=== PATIENT | male | born 1980 | race Caucasian/White ===

== ENCOUNTER 2020-12-23 10:18 | Emergency (ER) | payer OTHER ==
[~2020-12-23] VITALS: Ht 185.4 cm; Wt 77.6 kg
[2020-12-23] MEDS ORDERED: LIDOCAINE 1%/EPI 1:100,000 10 ML VIAL. ONE (10:27)
[2020-12-23] MEDS ORDERED: BACITRACIN ZINC TOPICAL OINT PACKET. TP ONE (10:28)
[2020-12-23] MEDS ORDERED: KETOROLAC 30 MG/ML VIAL. ONE (10:28)
[2020-12-23] MEDS ORDERED: NEOMY/BACITR/POLYMYXIN OINT PACKET. TP ONE (10:30)
[2020-12-23] MEDS ORDERED: CEPHALEXIN 250 MG CAPSULE PO ONE (10:30)
[2020-12-23] MEDS ORDERED: KETOROLAC 30 MG/ML VIAL. IM ONE (10:30)
[2020-12-23] MEDS ORDERED: DIPH,PERTUSS(ACELL),TET VAC/PF 0.5 ML SYRINGE. VAX IM ONE (10:30)
[2020-12-23] MEDS ORDERED: LIDOCAINE 1%/EPI 1:100,000 20 ML VIAL. IJ ONE (10:30)
[2020-12-23] MEDS ORDERED: LIDOCAINE 1%/EPI 1:100,000 10 ML VIAL. INJ ONE (10:30)
--- NOTE | 2020-12-23 10:49 | RAD ---
Right thumb 3 views. HISTORY: Thumb injury with nail 3 views were taken of the right thumb. There is a nail through the soft tissues at the tip of the felisa mb. The nail is distal to the phalanx, there is no fracture noted. IMPRESSION: 1. Nail through the soft tissues the distal thumb. 2. No acute fracture noted. Electronically signed by: Rick Abrams MD (12/23/2020 10:46 AM) [id number]
[2020-12-23] MEDS ORDERED: CEPH500C PO (11:19)
[2020-12-23] MEDS ORDERED: HYDR-2155 PO (11:19)
--- NOTE | 2020-12-23 11:20 | PHYS DOC ---
Past History Past Medical History: No Pertinent History Past Surgical History: No Surgical History Smoking: Cigarettes Additional Smoking Information: 1 ppd Alcohol Use: None Drug Use: None General Adult EDM: Chief Complaint: FOREIGN BODY HPI: HPI: 40-year-old male presents with report of right finger injury while at work just prior to arrival. Patient reports he was building a pole barn and a nail from his nail gun ended up going through his right thumb. Patient reports the nail is a ribbed making it more difficult to remove. Denies fever or chills. Denies trauma. Reports last tetanus booster greater than 5 years ago. Denies use of blood thinners. Review of Systems: Review of Systems: Constitutional: Denies fever or chills Musculoskeletal: Reports right thumb pain with retained foreign body Integument: Reports puncture wound to right thumb Neurologic: Denies headache, focal weakness or sensory changes Complete systems were reviewed and found to be within normal limits, except as documented in this note. Current Medications: Current Meds: Current Medications Medications (Trade) Dose Ordered Sig/Shoshana Start Time Stop Time Status Last Admin Dose Admin Bacitracin (Bacitracin Topical Pkt) 1 pkt STK-MED ONCE 12/23/20 10:28 12/23/20 10:28 DC Cephalexin HCl (Keflex) 500 mg 1X ONCE 12/23/20 10:30 12/23/20 10:31 DC 12/23/20 10:31 500 MG Diphtheria/ Pertussis/Tetanus Vacc (ADACEL TDap SYRINGE) 0.5 ml ONCE ONCE 12/23/20 10:30 12/23/20 10:31 DC 12/23/20 10:32 0.5 ML Ketorolac Tromethamine (Toradol 30mg Vial) 30 mg STK-MED ONCE 12/23/20 10:28 12/23/20 10:28 DC Lidocaine/ Epinephrine (Xylocaine 1%-Epi 1:100,000) 10 ml 1X ONCE 12/23/20 10:30 12/23/20 10:33 DC Neomycin/ Polymyxin/ Bacitracin (Triple Antibiotic Ointment) 1 pkt 1X ONCE 12/23/20 10:30 12/23/20 10:31 DC 12/23/20 10:34 1 PKT Allergies: Allergies: Allergies Coded Allergies Type Severity Reaction Last Updated Verified No Known Drug Allergies 12/23/20 No Physical Exam: PE: Constitutional: Well developed, well nourished, uncomfortable, non-toxic appearance HENT: Normocephalic, atraumatic Eyes: Conjunctiva normal, no discharge Neck: Normal range of motion, supple Lungs & Thorax: No respiratory distress, equal chest rise and fall Skin: Warm, dry, no erythema, puncture wound and metallic foreign body (large ribbed matthew nail from nail gun) as below Extremities: Large metal ribbed nail horizontally through distal aspect of right thumb finger pad, tendon function intact, radial pulse +2 Neurologic: Alert and oriented X 3, normal motor function, normal sensory function, no focal deficits noted Psychologic: Affect normal, judgment normal Current Patient Data: Vital Signs: Vital Signs Date Time Temp Pulse Resp B/P (MAP) Pulse Ox O2 Delivery O2 Flow Rate FiO2 12/23/20 10:25 98.1 76 24 139/81 (100) 97 Room Air EKG: EKG: [] Radiology/Procedures: Radiology/Procedures: PROCEDURE: FINGER(S) RIGHT Right thumb 3 views. HISTORY: Thumb injury with nail 3 views were taken of the right thumb. There is a nail through the soft tissues at the tip of the thumb. The nail is distal to the phalanx, there is no fracture noted. IMPRESSION: 1. Nail through the soft tissues the distal thumb. 2. No acute fracture noted. Electronically signed by: Rick Abrams MD (12/23/2020 10:46 AM) [id number] Heart Score: C/O Chest Pain: N/A Course & Med Decision Making: Course & Med Decision Making Pertinent Imaging studies reviewed. (See chart for details) Patient presents with foreign body to right thumb. Nail from nail gun appears to have gone through his soft tissue of distal right thumb. Pain addressed with digital block. X-ray obtained without bony involvement. Empiric antibiotic initiated. Tetanus updated. Successful removal of nail performed. Wound cleaned with associated copious irrigation. Antibiotic ointment and sterile bandage applied. Patient stable for discharge with outpatient follow-up with PCP. Discussed findings and plan with patient, who acknowledges understanding and agreement. Tonya Disclaimer: Tonya Disclaimer: This electronic medical record was generated, in whole or in part, using a voice recognition dictation system. Additional Procedures Progress Digital Block and removal of Foreign body: (Right distal thumb) Verbal consent obtained. Time out performed. Hand hygiene utilized. Wound and base of digit cleaned with ChloraPrep. Anesthesia obtained with 4 nerve finger block via dorsal approach with a 25-gauge hypodermic needle and (2) mL's of lidocaine 1% with epinephrine. Appropriate anesthesia obtained. Large nail clasp with small [employer] [facility] and able to be backed out of soft tissue of thumb. Wound again cleaned with ChloraPrep and copious irrigation performed x 400 mls of normal saline pressurized wound wash. Direct pressure applied to wound with subsequent control of bleeding. Empiric antibiotic ointment applied prior to sterile dressing. Patient tolerated procedure well and without difficulty. Departure Departure: Impression: Primary Impression: Retained foreign body of finger Additional Impression: Puncture wound of finger of right hand Qualified Codes: S61.239A - Puncture wound without foreign body of unspec ified finger without damage to nail, initial encounter Disposition: HOME / SELF CARE / HOMELESS Condition: STABLE Referrals: PCP,NO (PCP) Patient Instructions: Foreign Body, Puncture Wound, [id number] Additional Instructions: Do not soak your wound. You may shower. Clean wound daily with soap and water. Change dressing 2 times daily. Use over the counter antibiotic ointment with each dressing change. Please take antibiotics to completion. Scripts Hydrocodone Bit/Acetaminophen (HYDROCODONE-APAP 5-325 ) 1 Each Tablet 0.5-1 TAB PO PRN Q6HRS PRN for PAIN, #10 TAB 0 Refills Prov: OSWALDO WILCOX DO 12/23/20 Cephalexin (CEPHALEXIN) 500 Mg Capsule 1 CAP PO QID for Wound for 7 Days, #28 CAP Prov: OSWALDO WILCOX DO 12/23/20 OSWALDO WILCOX DO Dec 23, 2020 11:20
[2020-12-23 11:31] VITALS: BP 121/71
== END 2020-12-23 11:26 | disposition home or self-care (01) ==
LOC: ER 10:18
DX: S61.031A Puncture wound without foreign body of right thumb without damage to nail, initial encounter (principal); M79.5 Residual foreign body in soft tissue; F17.210 Nicotine dependence, cigarettes, uncomplicated; W29.4XXA Contact with nail gun, initial encounter; Y93.89 Activity, other specified; Y92.89 Other specified places as the place of occurrence of the external cause; Y99.8 Other external cause status
CPT/HCPCS: 64450; 73140; 90471; 90715; 96372; 99284; J1885